=== PATIENT | female | born 1985 | race Caucasian/White ===

== ENCOUNTER 2019-08-20 05:23 | Day surgery (SDC) | payer MEDICAID ==
[2019-08-13 11:37] LABS: BASOPHILS % (AUTO) 0.5 % (0-1); EOSINOPHILS # (AUTO) 0.1 X10'3 (0-0.9); EOSINOPHILS % (AUTO) 1.6 % (0-6); LYMPHOCYTES # (AUTO) 2.2 X10'3 (1.1-4.8); MEAN CORPUSCULAR HEMOGLOBIN 28.7 PG (27.0-31.0); MEAN CORPUSCULAR HGB CONC 34.1 g/dL (33.0-36.5); MEAN CORPUSCULAR VOLUME 84.1 FL (78-98); MEAN PLATELET VOLUME 8.5 FL (7.4-10.4); MONOCYTES # (AUTO) 0.5 X10'3 (0-0.9); MONOCYTES % (AUTO) 7.4 % (2-12); NEUTROPHILS # (AUTO) 3.9 X10'3 (1.8-7.7); NEUTROPHILS % (AUTO) 57.5 % (42-75); PRE OP HEMOGLOBIN 12.3 g/dL (12.0-16.0); PRE OP PLATELET COUNT 277 X10'3 (140-440); RED BLOOD COUNT 4.27 X10'6 (4.20-5.60); RED CELL DISTRIBUTION WIDTH 14.1 % (11.5-14.5)
[2019-08-13 11:52] LABS: ALBUMIN 3.2 G/DL (3.4-5.0); ALBUMIN/GLOBULIN RATIO 0.8 (1.1-1.5); ALKALINE PHOSPHATASE 80 IU/L (46-116); BLOOD UREA NITROGEN 7 MG/DL (7-18); BUN/CREATININE RATIO 11.1 (6.6-38.0); CALCIUM 9.1 MG/DL (8.5-10.1); CHLORIDE 104 MMOL/L (99-107); CREATININE 0.63 MG/DL (0.40-0.90); PRE OP ALT 19 U/L (30-65); PRE OP ANION GAP 7 (8-16); PRE OP AST 14 U/L (10-37); PRE OP BILIRUB, TOTAL 0.5 MG/DL (0.0-1.0); PRE OP GLUCOSE 85 MG/DL (70-104); PRE OP POTASSIUM 4.2 MMOL/L (3.4-5.1); PRE OP SODIUM 139 MMOL/L (135-145); TOTAL CARBON DIOXIDE 28.4 MMOL/L (24-32); TOTAL PROTEIN 7.3 G/DL (6.4-8.2); eGFR > 90 ML/MIN
[2019-08-13 11:54] LABS: PRE OP INR < 0.9 INR; PRE OP PARTIAL THROMB. TIME 25 SECONDS (22-32); PRE OP PROTIME 9.8 SECONDS (9.0-12.0)
[2019-08-13 11:55] LABS: CLARITY,URINE SLIGHTLY CLOUDY (Clear); COLOR,URINE YELLOW (Yellow); GLUCOSE, URINE NEGATIVE (Neg); KETONES,URINE NEGATIVE (Neg); LEUKOCYTE ESTERASE ,URINE TRACE (Neg); NITRITES, URINE NEGATIVE (Neg); OCCULT BLOOD,URINE NEGATIVE (Neg); PROTEIN,URINE NEGATIVE (Neg); UROBILINOGEN,URINE 0.2 E.U/dL (0.2-1.0)
[2019-08-13 11:56] LABS: UA COLLECTION TYPE CLN CATCH MIDSTREAM
[2019-08-13 12:23] LABS: HCG SERUM QL NEGATIVE
[2019-08-13 12:42] LABS: MUCUS STRANDS NONE SEEN /LPF (Neg); SQUAMOUS EPITHELIAL CELL,UR MODERATE /LPF (FEW)
[2019-08-13 12:43] LABS: BACTERIA,URINE 2+ /HPF (Neg)
[2019-08-13 12:44] LABS: RBC,URINE 0-2 /HPF (0-2)
[2019-08-20] VITALS (8 sets, daily range): BP systolic 94–117; BP diastolic 60–75
[~2019-08-20] VITALS: Ht 162.6 cm; Wt 98.2 kg
[~2019-08-20 05:23] MED LIST: NO HOME MEDS
[2019-08-20] MEDS ORDERED: ringers solution, lacted 1,000 ML IV SCH ×2 (05:30→07:16)
[2019-08-20] MEDS ORDERED: ceFOXitin sod/dextrose 2g/50ml 50 ML IV ONE (05:30)
[2019-08-20] MEDS ORDERED: famotidine 20mg tablet PO ONE (05:30)
[2019-08-20] MEDS ORDERED: LIDOcaine 1% (10mg/ml) 2ml vial ONE (05:52)
[2019-08-20] MEDS ORDERED: BUPIVAcaine/PF 2.5 mg/ml (0.25%) 30ml vial ONE (06:39)
[2019-08-20] MEDS ORDERED: sevoflurane 250ml liquid IH ONE (07:13)
[2019-08-20] MEDS ORDERED: ondansetron/PF 4mg/2ml inj IV PRN (07:20)
[2019-08-20] MEDS ORDERED: hydrALAZINE 20mg/ml inj. IV PRN (07:20)
[2019-08-20] MEDS ORDERED: labetalol 20mg/4ml (5mg/ml) syringe IV PRN (07:20)
[2019-08-20] MEDS ORDERED: fentaNYL/PF 50MCG/1 ML 2ML syringe IV PRN ×2 (07:20)
[2019-08-20] MEDS ORDERED: morphine 4 MG/ML inj SYRINge IV PRN ×2 (07:20)
[2019-08-20] MEDS ORDERED: midazolam 2 mg/2 ml injection ONE (07:21)
[2019-08-20] MEDS ORDERED: fentaNYL/PF 50MCG/1 ML 2ML syringe ONE (07:21)
[2019-08-20] MEDS ORDERED: propofol inj 20 ML IV ONE (07:28)
[2019-08-20] MEDS ORDERED: rocuronium 10mg/ml inj IV ONE (07:28)
[2019-08-20] MEDS ORDERED: ondansetron/PF 4mg/2ml inj ONE ×2 (07:28→08:34)
[2019-08-20] MEDS ORDERED: LIDOcaine 2% (20mg/ml) 5ml vial ONE (07:28)
[2019-08-20] MEDS ORDERED: dexamethasone sod phosphate 4mg/ml inj. ONE (07:28)
[2019-08-20] MEDS ORDERED: glycopyrrolate 0.2mg/ml inj ONE (07:29)
[2019-08-20] MEDS ORDERED: neostigmine methylsulfate 1 MG/ML 10ml vial ONE (07:29)
--- NOTE | 2019-08-20 08:16 | NUR ---
[facility] by Anesthesiologist Shin and report given by Anesthesiolgist. Pt responsive to stimuli but sleepy, all VS stable at this time mask to 10L sats 98%. 20G IV to right hand and IVF LR running to 100cc/hr, all bandaids to abdomen CDI, abdomen soft, doug pad in place with minimal drainage.
[2019-08-20] MEDS ORDERED: HYDROcodone/acetaminophen 10/325mg tab PO ONE (09:20)
--- NOTE | 2019-08-20 09:46 | NUR ---
Pt discharged by wheelchair to vehicle without incident. Pt in her own clothes, belongings with including pain pill script. IV DC'd. Pt tolerated food and fluids orally, ambulation and voided. Dressings remain CDI. Norma pad clean placed in underwear. Pt knows to follow up with MD in 2 weeks.
== END 2019-08-20 09:46 | disposition home or self-care (01) ==
LOC: PAS 05:23
PROVIDERS: ATTEND Obstetrics & Gynecology
DX: Z30.2 Encounter for sterilization (principal); E66.9 Obesity, unspecified; Z68.37 Body mass index [BMI] 37.0-37.9, adult; Z98.890 Other specified postprocedural states; Z87.891 Personal history of nicotine dependence; Z79.01 Long term (current) use of anticoagulants; Z79.899 Other long term (current) drug therapy
CPT/HCPCS: 36415; 58661; 80053; 81001; 82948; 84703; 85025; 85610; 85730; 86885; 86900; 86901; 86920; 87088; J0694; J1100; J2001; J2250; J2270; J2405; J2704; J2710; J3010; J3490; J7120; A4618